=== PATIENT | male | born 1955 | race Caucasian/White ===

== ENCOUNTER → 2017-07-16 | Outpatient (CLI) | payer OTHER ==
[~2017-07-16] MED LIST: ASPIR 8181 M1 PO; ASPIRIN EC325 MG PO; ASPIRIN81 M2 PO; ATORVASTATIN CA40 MG PO; CELECOXIB200 MG PO; COLCRYS0.6 MG PO; DIOVAN HCT 31 TABLE1 PO; ENDOCET 5-3251 EACH PO; HYZAAR 50-121 TABLET PO; IRON325 M1 PO; LO-DOSE ASPIRIN81 M1 PO; MELATIN3 MG PO
== END | disposition home or self-care (01) ==
LOC: AMB 08:21
PROC: 0HB1XZZ Excision of Face Skin, External Approach (ICD-10-PCS; principal; 2017-07-16)
DX: L72.0 Epidermal cyst (principal)
CPT/HCPCS: 88304

== ENCOUNTER → 2017-07-20 | Outpatient (CLI) | payer OTHER | END | disposition home or self-care (01) | LOC: CDC 12:49 | DX: Z01.810 Encounter for preprocedural cardiovascular examination (principal); G56.01 Carpal tunnel syndrome, right upper limb | CPT/HCPCS: 93000 ==

== ENCOUNTER 2017-08-28 19:34 | Emergency (ER) | payer OTHER ==
[~2017-08-28] VITALS: Ht 185.4 cm; Wt 153.1 kg
[2017-08-28] MEDS ORDERED: DIOVAN HCT 31 TABLE1 PO (22:18)
[2017-08-28 22:46] VITALS: BP 157/102
== END 2017-08-28 22:48 | disposition home or self-care (01) ==
LOC: EME 19:34
DX: I10 Essential (primary) hypertension (principal); T46.5X6A Underdosing of other antihypertensive drugs, initial encounter; Z91.128 Patient's intentional underdosing of medication regimen for other reason; J45.909 Unspecified asthma, uncomplicated; K21.9 Gastro-esophageal reflux disease without esophagitis; Z96.649 Presence of unspecified artificial hip joint
CPT/HCPCS: 99281; 99285